=== PATIENT | female | born 1955 ===

== ENCOUNTER 2022-07-15 10:29 | Outpatient (CLI) | payer OTHER ==
[~2022-07-15 10:29] MED LIST: LOSARTAN POTASS50 MG; METFORMIN HCL500 MG; PROTONIX40 MG PO; VYTORIN 10/40 M1 TAB PO
== END 2022-07-15 10:34 | disposition home or self-care (01) ==
LOC: SONOGRAMA 10:29
PROVIDERS: ATTEND Pathology Anatomic Pathology
DX: E04.8 Other specified nontoxic goiter (principal); E04.1 Nontoxic single thyroid nodule; D34 Benign neoplasm of thyroid gland